=== PATIENT | male | born 1965 | race Caucasian/White ===

== ENCOUNTER 2023-08-29 13:30 | Outpatient (CLI) | payer OTHER ==
--- NOTE | 2023-08-29 14:21 | Sleep Patient Instructions ---
Sleep Center Visit Summary - Patient Visit Information Reason for Visit: Initial consult for evaluation of sleep disordered breathing and other sleep issues. - Patient Instructions Instructions Attached: Sleep Study, Sleep Study Home Monitor Additional Instructions: You will be completing a sleep study, either an in-lab polysomnography (PSG) or home sleep study (HST). You will follow-up in the sleep care office after the sleep study is completed to hear the results and talk about therapy, if needed. You will be called by our office staff to schedule this appointment, but you may contact us with any questions. - Clinic Information Contact: [facility] [address] [place] [id number] [email or web address] T: [phone]
--- NOTE | 2023-08-29 14:24 | SLEEP CARE CONSULTATION ---
Information from patient questionnaire entered by Caitlin Burdick. I have reviewed and concur with the information entered by Caitlin Burdick. This document represents the service I personally performed and the decisions made by me, Sammi Mosley ARNP. History of Present Illness Service Date and Time: 08/29/2023 1330 Reason for Visit: New patient Chief Complaint: reports: Unrefreshed sleep, Snoring, Excessive daytime sleepiness, Fatigue, Frequent awakenings at night Date of Onset: 15YRS Usual bedtime: 3506-6115 Time it takes to fall asleep: 10-20MINS Snores at night: Yes Observed to quit breathing while asleep: Yes Sleeps alone due to snoring: No Number of times waking at night: 3-4 Reasons for waking at night: reports: Snoring, Other (DRY MOUTH and throat). denies: Choking, Gasping for air Toss, Turn, or Twitch while sleeping: Yes Recalls having dreams: Yes Usually gets out of bed at: 0500; weekends 7-8 AM Feels refreshed in the morning: No Morning headache: No Sleepy or fatigued during the day: Yes Ever fallen asleep while driving: Yes (drowsy driving but no accidents) Takes day naps: Yes (could nap every day; 15-20 mins during lunch) Dreams during day naps: No Prior sleep studies: No Additional HPI information: I had the pleasure of seeing ZOHRA MATHEWS today regarding the possibility of him having a sleep disorder. His current complaints are excessive daytime sl eepiness, fatigue, frequent night awakenings, snoring and unrefreshed sleep. He just does not sleep well and is not waking up feeling refreshed. He wakes up with a "super dry throat" and coughing. He says his tells him that he snores loudly and has stopped breathing in his sleep. He also "twitches" a lot in his sleep. His will go to sleep before him to be able to fall asleep before he comes to bed. - Parasomnia Symptoms Ever been unable to move upon waking from sleep: No Walks in sleep: No Talks in sleep: Yes Ever acted out dreams in sleep: No Ever felt weak in the knees when startled or emotional: No Bothered by creepy, crawly, restless sensations in legs: No Problems with memory or concentration: Yes (little bit of both, not a lot) Subjective Initial [place] Sleepiness Scale score: 15 (08/29/23) Past Medical History Past Medical History: reports: Hypertension, GERD, Other (enlarged prostate) Social History The patient's occupation is a AM. Patient is and lives in . Have you smoked in the past 12 months: No Cigarettes per day (20/pack): 20 Years of smokin Quit date: 2002 Smoking Pack Years: 20.0 Alcohol use: Yes Alcohol amount and frequency: 2 GLASSES A WEEK Caffeine use: Yes Caffeine amount and frequency: 2 CUPS A DAY Family History Family history of sleep disordered breathing: Yes Family Hx Sleep Apnea: Mother: Snoring Allergies and Home Medications Known drug allergies: No Drug allergies reviewed: Yes Home medication list reviewed: Yes (as listed) Allergy and home medication list: Allergies No Known Drug Allergies Allergy (Verified 08/29/23 13:50) Home Medications Sandra See Rx Instructions .ROUTE .COMPLEX 08/29/23 [History] Chlorthalidone See Rx Instructions .ROUTE .COMPLEX 08/29/23 [History] Lisinopril [Zestril] See Rx Instructions .ROUTE .COMPLEX 08/29/23 [History] Omeprazole See Rx Instructions .ROUTE .COMPLEX 08/29/23 [History] Tamsulosin HCl [Flomax] See Rx Instructions .ROUTE .COMPLEX 08/29/23 [History] Review of Systems Cardiovascular: reports: high blood pressure Gastrointestinal: reports: heartburn, difficulty swallowing Neurological: reports: head trauma. denies: headaches Psychiatric: denies: anxiety, depression Ear/Nose/Throat: reports: dry mouth/throat, wisdom teeth removed. denies: tonsillectomy Endocrine: reports: sluggishness. denies: thyroid disease Physical Exam Vital signs obtained and entered by: CAITLIN Latham MA Blood Pressure: 118/69 (LEFT ARM) Cuff size: regular Heart Rate: 85 O2 Saturation: 97 Height: 6 ft Weight: 210 lb 9.6 oz Body Mass Index: 28.5 BMI Classification: Overweight Neck circumference: 16 Mouth and throat: narrow oropharynx Soft palate: long Hard palate: Torus palatinus Uvula: long Uvula visualization: 25% Mallampati Class III Tongue: enlarged in size with teeth [place] on lateral edges Tonsils: 2+ Neck: normal w/o lymphadenopathy or thyromegaly Heart: regular rate and rhythm Lungs: clear bilaterally Impression and Plan 1. Suspected Obstructive Sleep Apnea-Hypopnea Syndrome, as suggested by a history of loud and irregular snoring, observed cessation of breath while asleep, frequent awakening during the night, unrefreshed sleep, cognitive impairment, and excessive daytime sleepiness. Narrow oropharynx and obesity are common predisposing factors for obstructive sleep apnea-hypopnea syndrome. I recommend proceeding to polysomnography to confirm the diagnosis and to assess severity. If the patient has significant sleep disordered breathing, a manual CPAP titration study will also be performed to find the optimal treatment pressure. I informed the patient of what the sleep studies involve and after some discussion, obtained agreement to proceed. The pathophysiology of obstructive sleep apnea-hypopnea syndrome was discussed with the patient and health risks of cardiovascular and cerebrovascular disease if not treated. Risks of drowsy driving discussed in detail and patient advised to avoid long distance driving and to cable puller at the first sign of drowsiness. Patient agreed to plan. * Schedule polysomnography. * Avoid long distance driving or driving when feeling sleepy. * Avoid alcohol, sedative and muscle relaxant around bedtime. * Attempt to lose weight. * Review instructions provided by trained office staff on how to prepare for the sleep study. * Return for follow-up after sleep study completed. Counseling Topics: Weight loss health impact Follow up with Sleep Care in: other (for sleep study results) Plan: PSG/HST Visit Type: In Office Time Spent with Patient (minutes): 30 Provider Statement: I spent 100% of the Face to Face Visit with the patient with greater than 50% spent counseling the patient and coordination of care.
[2023-08-29 14:27] VITALS: BP 118/69; O2SAT 97
== END 2023-08-29 13:31 | disposition home or self-care (01) ==
LOC: SC 13:30
PROVIDERS: ATTEND Nurse Practitioner Family
DX: G47.10 Hypersomnia, unspecified (principal); R06.83 Snoring; R06.81 Apnea, not elsewhere classified; G47.8 Other sleep disorders
CPT/HCPCS: 99203; 99212